=== PATIENT | female | born 2000 | race Caucasian/White ===

== ENCOUNTER 2019-03-16 12:06 | Emergency (ER) | payer MEDICAID ==
[~2019-03-16] VITALS: Ht 154.9 cm; Wt 47.6 kg
[2019-03-16 12:11] VITALS: BP_SYST 123
--- NOTE | 2019-03-16 12:14 | NUR ---
Patient to ER bed 03 to gown for evaluation. Side rails up.
--- NOTE | 2019-03-16 12:15 | NUR ---
Pt brought by self ,A&Ox4, pt presents to ER with sore throat , pt is afebrile, skin pink and warm, cap refill <3, VSS
--- NOTE | 2019-03-16 12:31 | NUR ---
ER Dr. VALDIVIA at bedside examining patient.
[2019-03-16] MEDS ORDERED: NACL 0.9% 1,000 ML IV ONE (12:34)
[2019-03-16] MEDS ORDERED: DEXAMETHASONE SOD PHOSPHATE 10 MG/ML VIAL IVP ONE (12:45)
[2019-03-16] MEDS ORDERED: KETOROLAC TROMETHAMINE 30 MG VIAL IVP ONE (12:45)
[2019-03-16 13:15] LABS: BASOPHILS # (AUTO) 0.1 K/uL (0.0-0.2); BASOPHILS % (AUTO) 0.6 % (0.0-2.0); EOSINOPHILS # (AUTO) 0.1 K/uL (0.0-0.4); EOSINOPHILS % (AUTO) 0.9 % (0.0-4.0); HEMATOCRIT 39.9 % (36-48); HEMOGLOBIN 13.4 g/dL (12.0-16.0); LYMPHOCYTES # (AUTO) 1.7 K/uL (1.0-5.5); LYMPHOCYTES % (AUTO) 18.3 % (20.5-51.5); MEAN CORPUSCULAR HEMOGLOBIN 30 pg (27-31); MEAN CORPUSCULAR HGB CONC 34 % (32-36); MEAN CORPUSCULAR VOLUME 91 fL (79.0-98.0); MONOCYTES # (AUTO) 0.5 K/uL (0.0-1.0); MONOCYTES % (AUTO) 5.1 % (1.7-9.3); NEUTROPHILS # (AUTO) 7.1 K/uL (1.8-7.7); NEUTROPHILS % (AUTO) 75.1 % (40.0-70.0); PLATELET COUNT (AUTO) 290 K/uL (130-430); WHITE BLOOD COUNT (AUTO) 9.4 K/uL (4.5-11.0)
[2019-03-16 13:22] LABS: CALCIUM 9.9 mg/dL (8.4-11.0); CREATININE 0.6 mg/dL (0.55-1.30)
[2019-03-16 13:27] LABS: ALBUMIN 4.3 g/dL (3.4-4.8); TOTAL BILIRUBIN 0.4 mg/dL (0.0-1.0)
--- NOTE | 2019-03-16 13:41 | NUR ---
PATIENT ASSISTED TO RESTROOM TO COLLECT URINE SAMPLE. PATIENT ASSISTED BACK TO BED IN STABLE CONDITION.
[2019-03-16] MEDS ORDERED: cefTRIAXone 1 GM IVPB PREMIX 50 ML IV ONE (13:45)
[2019-03-16 13:46] LABS: BILIRUBIN,URINE NEGATIVE (NEGATIVE); BLOOD, URINE NEGATIVE (NEGATIVE); CLARITY/URINE CLEAR (CLEAR); COLOR,URINE YELLOW (YELLOW); GLUCOSE,URINE NEGATIVE (NEGATIVE); KETONES,URINE TRACE (NEGATIVE); LEUKOCYTE ESTERASE ,URINE NEGATIVE (NEGATIVE); NITRITE, URINE NEGATIVE (NEGATIVE); PROTEIN URINE TRACE (NEGATIVE); UROBILINOGEN,URINE 0.2 (0.2-1.0)
[2019-03-16 15:12] VITALS: BP_SYST 123
--- NOTE | 2019-03-16 15:12 | NUR ---
Patient given written and verbal discharge instructions and verbalizes understanding. ER MD discussed with patient the results and treatment provided. Patient in stable condition. ID arm band removed. IV catheter removed intact and dressing applied, no active bleeding. Rx of ZITHROMAX, PRELONE, AND TYLENOL given. Patient educated on pain management and to follow up with PMD. Pain Scale 0/10. Opportunity for questions provided and answered. Medication side effect fact sheet provided.
== END 2019-03-16 15:12 | disposition home or self-care (01) ==
LOC: SED 12:06
DX: J02.9 Acute pharyngitis, unspecified (principal); Z88.0 Allergy status to penicillin
CPT/HCPCS: 36415; 80053; 81003; 81025; 83605; 83690; 85025; 86308; 86403; 87040; 87081; 96365; 96375; 99283; J0696; J1100; J1885; J7030

== ENCOUNTER 2020-04-11 08:55 | Emergency (ER) | payer MEDICAID ==
[~2020-04-11] VITALS: Ht 152.4 cm; Wt 56.7 kg
--- NOTE | 2020-04-11 09:20 | NUR ---
Zehra ramos in ED - 04/11/20 at 0935 by SDEDSM LJ Donovan in tent examining patient.
--- NOTE | 2020-04-11 09:32 | NUR ---
ER in tent examining patient.
[2020-04-11 09:35] VITALS: BP_SYST 137
--- NOTE | 2020-04-11 09:35 | NUR ---
Patient to ER bed 08 to gown for evaluation. Side rails up.
--- NOTE | 2020-04-11 09:37 | NUR ---
Patient arrived in the ED c/o abdominal and suprapubic pain for the last 2 days. Denied any chest pain or shortness of breath. Denied any fevers and chills. Patient is alert and oriented x4, respirations even and unlabored, speaking in full sentences, and ambulating with a steady gait. VSS, pain level 8/10 - Taking Zofran and Naproxen for it. Informed of the approximate wait time. Instructed to notify ED staff for any changes in condition or worsening of symptoms while waiting to be seen by an ED provider. Patient verbalized understanding.
--- NOTE | 2020-04-11 09:38 | NUR ---
ER Dr. Cali at bedside examining patient.
--- NOTE | 2020-04-11 10:01 | NUR ---
Patient ambulated to the bathroom with a steady gait. Urine specimen collected and sent to the lab.
[2020-04-11 10:04] LABS: BILIRUBIN,URINE 2+ (NEGATIVE); BLOOD, URINE 1+ (NEGATIVE); COLOR,URINE YELLOW (YELLOW); GLUCOSE,URINE NEGATIVE (NEGATIVE); KETONES,URINE 3+ (NEGATIVE); LEUKOCYTE ESTERASE ,URINE NEGATIVE (NEGATIVE); NITRITE, URINE NEGATIVE (NEGATIVE); PROTEIN URINE 1+ (NEGATIVE); UROBILINOGEN,URINE 0.2 (0.2-1.0)
[2020-04-11 10:05] LABS: CLARITY/URINE SLIGHTLY HAZY (CLEAR)
--- NOTE | 2020-04-11 10:50 | NUR ---
Administered Toradol IVP as ordered by Dr. Cali. Patient tolerated the medications well. See eMAR for details.
--- NOTE | 2020-04-11 10:50 | NUR ---
# 18 gauge angiocath placed to LAC. Use of asceptic technique. Opsite placed over site. Blood return noted. Blood for lab drawn from site. Flushed with 10 cc of normal saline. No evidence of infiltration noted. Patient tolerated well.
[2020-04-11] MEDS: NACL 0.9% 1,000 ML IV ONE (10:55)
[2020-04-11] MEDS: KETOROLAC TROMETHAMINE 30 MG VIAL IVP ONE (10:55)
[2020-04-11 11:01] LABS: BASOPHILS % (AUTO) 0.3 % (0.0-2.0); EOSINOPHILS % (AUTO) 0.3 % (0.0-4.0); HEMATOCRIT 43.3 % (36-48); HEMOGLOBIN 14.3 g/dL (12.0-16.0); LYMPHOCYTES # (AUTO) 2.6 K/uL (1.0-5.5); LYMPHOCYTES % (AUTO) 24.6 % (20.5-51.5); MEAN CORPUSCULAR HEMOGLOBIN 29 pg (27-31); MEAN CORPUSCULAR HGB CONC 33 % (32-36); MEAN CORPUSCULAR VOLUME 87 fL (79.0-98.0); MONOCYTES # (AUTO) 0.6 K/uL (0.0-1.0); MONOCYTES % (AUTO) 5.4 % (1.7-9.3); NEUTROPHILS # (AUTO) 7.5 K/uL (1.8-7.7); NEUTROPHILS % (AUTO) 69.4 % (40.0-70.0); PLATELET COUNT (AUTO) 259 K/uL (130-430); RED BLOOD CELL COUNT(AUTO) 4.96 MIL/uL (4.2-6.2); RED CELL DISTRIBUTION WIDTH 11.7 % (9.0-15.0); WHITE BLOOD COUNT (AUTO) 10.8 K/uL (4.8-10.8)
[2020-04-11 11:21] LABS: BACTERIA,URINE FEW /HPF (None Seen); MUCUS,URINE 3+ /LPF (None Seen); WBC,URINE 0-3 /HPF (0-3)
[2020-04-11 11:36] LABS: CALCIUM 8.5 mg/dL (8.4-11.0); CREATININE 0.6 mg/dL (0.55-1.30); POTASSIUM 3.2 mmol/L (3.5-5.1)
[2020-04-11 11:43] LABS: ALBUMIN 3.4 g/dL (3.4-4.8); TOTAL BILIRUBIN 0.3 mg/dL (0.0-1.0)
--- NOTE | 2020-04-11 11:45 | NUR ---
Patient is resting comfortably in bed. Respirations even and unlabored and speaking in full sentences.
--- NOTE | 2020-04-11 12:50 | NUR ---
Patient is resting comfortably in bed. Respirations even and unlabored and speaking in full sentences.
--- NOTE | 2020-04-11 13:51 | NUR ---
Patient given written and verbal discharge instructions and verbalizes understanding. ER MD discussed with patient the results and treatment provided. Patient in stable condition. ID arm band removed. No Rx given. Patient educated on pain management and to follow up with PMD. Pain Scale 0/10. Opportunity for questions provided and answered. Medication side effect fact sheet provided.
[2020-04-11 14:03] VITALS: BP_SYST 137
[2020-04-11 14:12] LABS: BARBITURATE, URINE NEGATIVE (NEG <=200); BENZODIAZEPINE, URINE NEGATIVE (NEG <=150); CANNABINOID, URINE POSITIVE (NEG <=50); COCAINE, URINE NEGATIVE (NEG <=150); METHAMPHETAMINES SCREEN,URINE NEGATIVE (NEG <=500); OPIATE, URINE NEGATIVE (NEG <=100); PHENCYCLIDINE SCREEN,URINE NEGATIVE (NEG <=25); UR TRICYCLIC ANTIDEPRESSANTS NEGATIVE (NEG <=300); URINE AMPHETAMINE NEGATIVE (NEG <=500); URINE METHADONE NEGATIVE (NEG <=200); URINE OXYCODONE SCREEN NEGATIVE (NEG <=100); URINE PROPOXYPHENE SCREEN NEGATIVE (NEG <=300)
== END 2020-04-11 13:51 | disposition home or self-care (01) ==
LOC: SED 08:55
DX: B34.9 Viral infection, unspecified (principal); R11.15 Cyclical vomiting syndrome unrelated to migraine; F12.90 Cannabis use, unspecified, uncomplicated; Z88.1 Allergy status to other antibiotic agents
CPT/HCPCS: 36415; 99284; 74176; 80053; 80307; 81000; 85025; 96361; 96374; J1885; J7030

== ENCOUNTER 2022-08-29 04:08 | Emergency (ER) | payer MEDICAID ==
[~2022-08-29] VITALS: Ht 152.4 cm; Wt 60.3 kg
[2022-08-29 04:11] VITALS: BP_SYST 114
--- NOTE | 2022-08-29 04:15 | NUR ---
PT HERE C/O ABDOMINAL PAIN X3 DAYS WITH N/V/D, DENIES DYAURIA, DENIES FEVER. PMH:DENIES PT AAOX4, NO SOB NOTED AND AND. PENDING MD BARRIGA
--- NOTE | 2022-08-29 04:35 | NUR ---
DR. MANNING AT BEDSIDE WITH PATIENT FOR MSE.
--- NOTE | 2022-08-29 04:40 | NUR ---
PT FROM HOME WITH C/O ABD PAIN ACCOMPANIED BY NAUSEA, VOMITING AND DIARRHEA X 3DAYS. PT STATE SHE HAS VOMITED 10X PER HOUR FOR THE LAST 3 DAYS, WITH NO EPISODES OF VOMITING SINCE ARRIVING. REPORTING ABD TENDERNESS, FEELING GEN WEAK AND DIZZY. PT ASSUMES THE N/V STARTED AFTER EATING TAKEOUT [employer] FOOD. SAFETY PRECAUTIONS IN PLACE.
[2022-08-29] MEDS ORDERED: PROCHLORPERAZINE EDISYLATE 10 MG/2 ML VIAL IVP ONE (04:45)
[2022-08-29] MEDS ORDERED: NACL 0.9% 1,000 ML IV ONE ×2 (04:45→05:30)
[2022-08-29] MEDS ORDERED: MORPHINE 4 MG INJ. 4 MG/ML VIAL IVP ONE (05:45)
[2022-08-29 05:54] LABS: BASOPHILS % (AUTO) 0.1 % (0.0-2.0); EOSINOPHILS % (AUTO) 0.1 % (0.0-4.0); HEMATOCRIT 39.8 % (36-48); HEMOGLOBIN 13.2 g/dL (12.0-16.0); LYMPHOCYTES # (AUTO) 2.4 K/uL (1.0-5.5); LYMPHOCYTES % (AUTO) 17.1 % (20.5-51.5); MEAN CORPUSCULAR HEMOGLOBIN 29 pg (27-31); MEAN CORPUSCULAR HGB CONC 33 % (32-36); MEAN CORPUSCULAR VOLUME 86 fL (79.0-98.0); MONOCYTES # (AUTO) 0.6 K/uL (0.0-1.0); MONOCYTES % (AUTO) 4.3 % (1.7-9.3); NEUTROPHILS # (AUTO) 10.9 K/uL (1.8-7.7); NEUTROPHILS % (AUTO) 78.4 % (40.0-70.0); PLATELET COUNT (AUTO) 259 K/uL (130-430); RED BLOOD CELL COUNT(AUTO) 4.65 MIL/uL (4.2-6.2); RED CELL DISTRIBUTION WIDTH 12.4 % (9.0-15.0); WHITE BLOOD COUNT (AUTO) 13.9 K/uL (4.8-10.8)
[2022-08-29] MEDS ORDERED: MORPHINE 2 MG/ML INJ. SYRINGE IVP ONE (06:00)
[2022-08-29 06:30] LABS: CALCIUM 9.2 mg/dL (8.4-11.0); CREATININE 0.72 mg/dL (0.55-1.30); TOTAL BILIRUBIN 0.4 mg/dL (0.0-1.0)
[2022-08-29 06:31] LABS: ALBUMIN 3.9 g/dL (3.4-4.8)
[2022-08-29 06:43] LABS: BILIRUBIN,URINE 1+ (NEGATIVE); CLARITY/URINE SLIGHTLY CLOUDY (CLEAR); COLOR,URINE YELLOW (YELLOW); GLUCOSE,URINE NEGATIVE (NEGATIVE); KETONES,URINE 3+ (NEGATIVE); PROTEIN URINE NEGATIVE (NEGATIVE)
[2022-08-29 06:44] LABS: BLOOD, URINE 1+ (NEGATIVE); LEUKOCYTE ESTERASE ,URINE NEGATIVE (NEGATIVE); NITRITE, URINE NEGATIVE (NEGATIVE); UROBILINOGEN,URINE 0.2 (0.2-1.0)
[2022-08-29 06:48] LABS: BACTERIA,URINE MODERATE /HPF (None Seen)
[2022-08-29 06:49] LABS: MUCUS,URINE 1+ /LPF (None Seen)
--- NOTE | 2022-08-29 07:12 | NUR ---
REPORT GIVEN TO WENDI VALLADARES TO ASSUME CARE.
[2022-08-29] MEDS ORDERED: ONDA-8 TL (07:54)
[2022-08-29] MEDS ORDERED: PEPTO PO (07:54)
[2022-08-29] MEDS ORDERED: LOPE2CAP PO (07:54)
[2022-08-29] MEDS ORDERED: HYDR-3917 PO (07:54)
[2022-08-29 08:49] VITALS: BP_SYST 116
--- NOTE | 2022-08-29 08:49 | NUR ---
Patient given written and verbal discharge instructions and verbalizes understanding. ER MD discussed with patient the results and treatment provided. Patient in stable condition. ID arm band removed. IV catheter removed intact and dressing applied, no active bleeding. Rx of IMODIUM, NORCO, ZOFRAN AND PEPTO-BISMOL given. Patient educated on pain management and to follow up with PMD. Pain Scale . Opportunity for questions provided and answered. Medication side effect fact sheet provided.
== END 2022-08-29 08:49 | disposition home or self-care (01) ==
LOC: SED 04:08
DX: K52.9 Noninfective gastroenteritis and colitis, unspecified (principal); E86.0 Dehydration; R10.84 Generalized abdominal pain; R11.2 Nausea with vomiting, unspecified; Z88.1 Allergy status to other antibiotic agents; Z79.899 Other long term (current) drug therapy
CPT/HCPCS: 99284; 96374; 96361; 96375; 80053; 81000; 83690; 85025; 87086; 36415; J0780; J2270; J7030